=== PATIENT | male | born 1940 | race Caucasian/White ===

== ENCOUNTER → 2017-01-29 | Outpatient (CLI) | payer OTHER | LOC: HEART 5 09:53 | DX: F17.210 Nicotine dependence, cigarettes, uncomplicated (principal); R94.2 Abnormal results of pulmonary function studies | CPT/HCPCS: 94060; 94729 ==

== ENCOUNTER → 2022-02-19 | Outpatient (CLI) | payer OTHER ==
[~2022-02-19] MED LIST: ALBUTEROL2.5 MG/3 M INH; ALDACTONE 25MG25 MG PO; BREO ELLIPTA 21 EACH INH; COZAAR 50MG TAB50 MG PO; DITROPAN 5 MG TA5 MG PO; ELIQUIS5 MG PO; IRON325 M1 PO; LASIX 40 MG TAB40 MG PO; LOPRESSOR 25 MG25 MG PO; METOPROLOL SUCC25 MG PO; POTASSIUM CHLO10 ME1 PO; PROAIR DIGIHAL90 MCG INH; ROPINIROLE HCL1 MG PO; SILDENAFIL20 MG PO
== END ==
LOC: HEART 5 08:40
DX: R06.02 Shortness of breath (principal); Z79.899 Other long term (current) drug therapy
CPT/HCPCS: 94060; 94729